=== PATIENT | male | born 1990 | race African-American/Black ===

== ENCOUNTER 2020-11-01 00:57 | Emergency (ER) | payer OTHER ==
[~2020-11-01] VITALS: Ht 172.7 cm; Wt 69.0 kg
[2020-11-01 01:50] VITALS: BP 136/75
== END 2020-11-01 01:55 | disposition home or self-care (01) | DRG 556 ==
LOC: ED 00:57
DX: M25.511 Pain in right shoulder (principal); W01.0XXA Fall on same level from slipping, tripping and stumbling without subsequent striking against object, initial encounter; Y92.143 Cell of prison as the place of occurrence of the external cause